=== PATIENT | male | born 1965 | race Hispanic/Latino ===

== ENCOUNTER 2021-01-31 10:14 | Emergency (ER) | payer BC, OTHER ==
[2021-01-31] MEDS ORDERED: Ketorolac Tromethamine 30 MG/ML VIAL ONE (11:24)
== END 2021-01-31 11:44 | disposition home or self-care (01) ==
LOC: ERS 10:14
DX: M54.50 Low back pain, unspecified (principal); G89.29 Other chronic pain; K21.9 Gastro-esophageal reflux disease without esophagitis; G47.30 Sleep apnea, unspecified; Z87.891 Personal history of nicotine dependence
CPT/HCPCS: 96372; 99283; J1885

== ENCOUNTER 2021-06-29 12:00 | Outpatient (CLI) | payer BC ==
[2021-06-29 13:42] LABS: Hemoglobin 14.9 g/dL (13.5-17.5); Mean Corpuscular HGB CONC 32.5 g/dL (32.0-36.0); Mean Corpuscular Volume 95.2 fl (81.2-95.1); Mean Platelet Volume 9.7 fl (7.4-10.4); Platelet Count 371 10x3/uL (150-450); RBC Distribution Width 12.6 % (11.5-14.5); Red Blood Cell (RBC) Count 4.81 10x6/uL (4.32-5.72); White Blood Cell (WBC) Count 5.9 10x3/uL (3.5-10.5)
[2021-06-29 13:53] LABS: INR-International Normal Ratio 0.9; PTT 26.5 sec (22.0-33.0); Prothrombin Time 10.2 sec (9.5-12.1)
[2021-06-29 13:54] LABS: Anion Gap 15 mmol/L (10-20); BUN (Urea Nitrogen) 12 mg/dL (8.4-25.7); Calc. Creatinine Clearance 0 mL/min (70-130); Calcium 9.6 mg/dL (7.8-10.44); Carbon Dioxide 25 mmol/L (22-29); Chloride 105 mmol/L (98-107); Glucose 94 mg/dL (70-105); Potassium 4.6 mmol/L (3.5-5.1); Sodium 140 mmol/L (136-145)
[2021-06-29 21:15] LABS: SARS-CoV-2 PCR by NAA Not Detected (NotDetected)
== END 2021-06-29 12:01 | disposition home or self-care (01) ==
LOC: LABBT 12:00
PROVIDERS: ATTEND Surgery
DX: Z01.818 Encounter for other preprocedural examination (principal); M48.061 Spinal stenosis, lumbar region without neurogenic claudication; M54.16 Radiculopathy, lumbar region; Z20.822 Contact with and (suspected) exposure to COVID-19
CPT/HCPCS: 80048; 85027; 85610; 85730; 93005; 93010; U0003; U0005

== ENCOUNTER 2021-07-02 06:12 | Observation (INO) | payer BC ==
[2021-06-29 10:22] VITALS: BMI 42.5
[2021-07-02] MEDS ORDERED: fentaNYL Citrate/PF 100 MCG/2 ML SYRINGE ONE (06:50)
[2021-07-02] MEDS ORDERED: Lidocaine 2% Jelly 5 ML TUBE ONE (06:51)
[2021-07-02] MEDS ORDERED: Thrombin 5000 UNITS/5 ML VIAL ONE (06:57)
[2021-07-02] MEDS ORDERED: ceFAZolin (BATCH) 2 GM/100 ML BAG ONE (07:25)
[2021-07-02] MEDS ORDERED: Dexamethasone 20 MG/5 ML VIAL ONE (07:34)
[2021-07-02] MEDS ORDERED: PROPOFOL 200 MG/20 ML VIAL ONE (07:34)
[2021-07-02] MEDS ORDERED: Ondansetron PF 4 MG/2 ML Vial ONE (07:34)
[2021-07-02] MEDS ORDERED: Glycopyrrolate 0.2 MG/ML 5 ML SYRINGE ONE (07:34)
[2021-07-02] MEDS ORDERED: Ketorolac Tromethamine 30 MG/ML VIAL ONE (07:34)
[2021-07-02] MEDS ORDERED: Rocuronium Bromide 10 MG/ML (10ML VIAL) ONE (07:34)
[2021-07-02] MEDS ORDERED: Lidocaine 1% PF 5 ML VIAL ONE (07:34)
[2021-07-02] MEDS ORDERED: Ondansetron PF 4 MG/2 ML Vial IVP PRN (09:24)
[2021-07-02] MEDS ORDERED: Acetaminophen/Codeine 30-300mg Tablet PO PRN (09:24)
[2021-07-02] MEDS ORDERED: traMADol HCl 50 MG TAB PO PRN (09:24)
[2021-07-02] MEDS ORDERED: Acetaminophen 325 MG TAB PO PRN (09:24)
[2021-07-02] MEDS ORDERED: Cyclobenzaprine 10 MG TAB PO PRN (09:26)
[2021-07-02] MEDS ORDERED: Fentanyl 100 MCG/2 ML VIAL ONE ×3 (09:27→10:13)
[2021-07-02] MEDS ORDERED: Promethazine HCl 25 MG/ML VIAL IVPB PRN (09:31)
[2021-07-02] MEDS ORDERED: Ondansetron HCl/PF 4 MG/2 ML Vial IVP PRN (09:31)
[2021-07-02] MEDS ORDERED: Promethazine HCl 25 MG/ML VIAL IM PRN (09:31)
[2021-07-02] MEDS ORDERED: Promethazine HCl 25 MG/ML VIAL ONE (09:51)
[2021-07-02] MEDS: HYDROcodone/Acetaminophen 10/325 mg Tablet PO PRN ×2 (12:52→18:09)
[2021-07-02] MEDS: Gabapentin 300 MG CAP PO SCH ×3 (12:52→20:00)
[2021-07-02] MEDS: Sodium Chloride 0.9% 1,000 ML IV SCH ×2 (12:54→23:27)
[2021-07-02] MEDS ORDERED: Non-Formulary Item 1 EACH (Gabapentin [Gabapentin] 600 MG Tablet) PO SCH (13:00)
[2021-07-02] MEDS: ceFAZolin (BATCH) 2 GM in Premix Bag 1 BAG IVPB SCH ×2 (15:41→23:28)
[2021-07-02] MEDS: Morphine 2 MG/ML VIAL SLOW IVP PRN ×2 (15:41→20:01)
[2021-07-02] MEDS ORDERED: ceFAZolin 2 GM/Dextrose 50 ML 2 GM in Premix Bag 1 BAG IVPB SCH (16:00)
[2021-07-03] MEDS: HYDROcodone/Acetaminophen 10/325 mg Tablet PO PRN ×3 (00:19→13:33)
[2021-07-03] MEDS: Morphine 2 MG/ML VIAL SLOW IVP PRN (01:46)
[2021-07-03] MEDS: Gabapentin 300 MG CAP PO SCH ×2 (08:18→12:20)
[2021-07-03] MEDS ORDERED: Non-Formulary Item 1 EACH (Omeprazole Magnesium [Omeprazole Magnesium] 20 MG Tablet.Dr) PO SCH (09:00)
[2021-07-03] MEDS: Sodium Chloride 0.9% 1,000 ML IV SCH (12:22)
[2021-07-03 12:46] VITALS: BP 121/74; TEMP 98.4
== END 2021-07-03 13:45 | disposition home or self-care (01) ==
LOC: SDC 06:12 → SJJU 10:47
PROVIDERS: ADMIT Surgery; ATTEND Surgery
PROC: 01NB0ZZ Release Lumbar Nerve, Open Approach (ICD-10-PCS; principal; 2021-07-02)
DX: M48.062 Spinal stenosis, lumbar region with neurogenic claudication (principal); M54.16 Radiculopathy, lumbar region; Z79.899 Other long term (current) drug therapy; Z88.1 Allergy status to other antibiotic agents; Z98.1 Arthrodesis status; Z98.890 Other specified postprocedural states
CPT/HCPCS: 76000; 96374; 96375; 96376; G0378; J0690; J1100; J1885; J2270; J2405; J2550; J2704; J3010; J3370; J7050

== ENCOUNTER 2022-05-11 13:34 | Outpatient (CLI) | payer BC | END 2022-05-11 13:35 | disposition home or self-care (01) | LOC: SCSMRI 13:34 | PROVIDERS: ATTEND Family Medicine | DX: M96.1 Postlaminectomy syndrome, not elsewhere classified (principal); G89.4 Chronic pain syndrome; M47.26 Other spondylosis with radiculopathy, lumbar region; M51.16 Intervertebral disc disorders with radiculopathy, lumbar region; M89.38 Hypertrophy of bone, other site; Z98.890 Other specified postprocedural states | CPT/HCPCS: 72120; 72158 ==

== ENCOUNTER 2023-09-12 13:58 | Outpatient (CLI) | payer BC | END 2023-09-12 13:59 | disposition home or self-care (01) | LOC: BICMRI 13:58 | PROVIDERS: ATTEND Family Medicine | DX: M96.1 Postlaminectomy syndrome, not elsewhere classified (principal); M47.816 Spondylosis without myelopathy or radiculopathy, lumbar region; Z98.890 Other specified postprocedural states | CPT/HCPCS: 72148 ==